=== PATIENT | male | born 1945 | race Caucasian/White ===

== ENCOUNTER 2016-05-27 10:34 | Outpatient (CLI) | payer MEDICARE, BC | END 2016-05-27 10:35 | disposition home or self-care (01) | DX: R13.10 Dysphagia, unspecified (principal) | CPT/HCPCS: 74230; 92611; G8996; G8997; G8998 ==

== ENCOUNTER 2018-03-14 07:30 | Outpatient (CLI) | payer MEDICARE, BC | END 2018-03-14 07:31 | disposition home or self-care (01) | LOC: DI 07:30 | PROVIDERS: ATTEND Internal Medicine | DX: I48.91 Unspecified atrial fibrillation (principal); R00.1 Bradycardia, unspecified | CPT/HCPCS: 93306 ==

== ENCOUNTER 2018-04-02 15:00 | Outpatient (CLI) | payer MEDICARE, BC | END 2018-04-02 15:01 | disposition home or self-care (01) | LOC: RT 15:00 | PROVIDERS: ATTEND Internal Medicine Cardiovascular Disease | DX: I48.2 Chronic atrial fibrillation (principal) | CPT/HCPCS: 93005 ==

== ENCOUNTER 2018-04-27 09:50 | Outpatient (CLI) | payer MEDICARE, BC ==
--- NOTE | 2018-04-27 14:06 | CARDIAC PROCEDURE NOTE ---
DATE OF SERVICE: 04/27/2018 Physician: Jaci Ling MD PROCEDURE: Exercise Cardiolite test PROTOCOL: Pradip. Time 10 minutes 15 seconds, JEAN-CLAUDE was less than -20. METS were 12.23. Heart rate response baseline 50 to a maximum 143. Blood pressure response baseline 144/78 to a maximum of 170/64. ARRHYTHMIAS: Occasional PAC. The underlying rhythm was sinus rhythm. REASON FOR STOPPING TEST: The patient had completed a minute of exercise after injection and also said his balance was affected. SYMPTOMS: No chest pain. ST segment response: There were ST depressions of approximately 1 mm in V4-V6. EXAM CHANGES: None. IMPRESSION: No symptoms. There were EKG changes. CONCLUSION: Await Cardiolite portion of test. TD: 04/27/2018 13:08 MTDD
--- NOTE | 2018-04-27 15:50 | Nuclear Medicine Report ---
Reason: NEW AFIB Procedure Date: 04/27/2018 Accession Number: [id number] / [id number] Procedure: NM - Myocardial Perfusion STR/RST CPT Code: FULL RESULT: EXAM: SINGLE-ISOTOPE EXERCISE STRESS TEST. SINGLE-ISOTOPE AND ONE-DAY REST/STRESS MYOCARDIAL PERFUSION SCANS WITH TOMOGRAPHIC IMAGING, QUANTITATIVE ANALYSIS, WALL MOTION ANALYSIS AND CALCULATION OF EJECTION FRACTION. EXAM DATE: 04/27/2018 11:35 AM. CLINICAL HISTORY: New onset atrial fibrillation. COMPARISON: None available. TECHNIQUE: A rest myocardial perfusion scan was done with tomography after the intravenous administration of 9.8 mCi Tc-99m sestamibi. After an appropriate delay, a treadmill exercise stress was performed according to department protocol. The patient exercised for 10 minutes and 15 seconds. The maximum heart rate was 143 bpm, which was 97% of the maximum predicted heart rate of 147 bpm. At approximately peak heart rate, 44.1 mCi of Tc-99m sestamibi was injected for stress myocardial perfusion scan. Motion correction was applied when appropriate. Gated tomographic images were obtained for wall motion analysis and computation of left ventricular ejection fraction. FINDINGS: On visual analysis, there is a mild fixed perfusion defect in the inferolateral wall. Computer analysis: Summed stress score 6 Summed rest score 4 Summed difference score 2 Wall motion analysis demonstrates no focal wall motion abnormality The left ventricular end-diastolic volume is 72 cc. The left ventricular end-systolic volume is 24 cc. The left ventricular ejection fraction is calculated to be 66%. IMPRESSION: 1. On visual analysis, mild fixed defect in the inferolateral wall. No convincing significant reversible perfusion defects. 2. Normal left ventricular ejection fraction of 66%. 3. Normal segmental and global wall motion. 4. Normal left ventricular cavity size, no change with stress. 5. Based on computer analysis, mildly abnormal study with mild ischemia. [facility]
== END 2018-04-27 09:51 | disposition home or self-care (01) ==
LOC: DI 09:50
PROVIDERS: ATTEND Internal Medicine
DX: I25.9 Chronic ischemic heart disease, unspecified (principal); I48.91 Unspecified atrial fibrillation
CPT/HCPCS: 78452; 93017; A9500